=== PATIENT | female | born 2000 | race Caucasian/White ===

== ENCOUNTER 2023-03-24 14:16 | Emergency (ER) | payer OTHER, SELFPAY ==
[2023-03-24 14:21] VITALS: BP 127/82
[2023-03-24 14:47] LABS: % Basophils 0.6 % (0-2); % Eosinophils 0.5 % (0-6); % Immature Granulocytes 0.3 % (0-0.5); % Lymphocytes 12.8 % (20.5-51.1); % Monocytes 8.7 % (1.7-9.3); % Neutrophils 77.1 % (42.2-75.2); Absolute Basophils 0.1 10^3/uL (0-0.2); Absolute Eosinophils 0.1 10^3/uL (0-0.7); Absolute Lymphocytes 1.5 10^3/uL (1.2-3.4); Absolute Neutrophils 9.2 10^3/uL (1.4-6.5); Hematocrit 40.2 % (37.0-47.0); Hemoglobin 13.7 g/dL (12.0-16.0); Mean Corp Hgb Conc. 34.1 g/dL (33.0-37.0); Mean Corpuscular Hgb 31.4 pg (27.0-31.0); Mean Platelet Volume 9.2 fL (7.4-10.4); Nucleated Red Blood Cells % 0 %; Platelet Count 298 10^3/uL (130-400); Red Blood Cell Count 4.37 10^6/uL (4.20-5.40); Red Cell Dist. Width 12.3 % (11.5-14.5)
[2023-03-24 14:51] LABS: HCG, Serum Qualitative Screen Negative
[2023-03-24 14:53] LABS: Urine Albumin Negative (Neg - Trace); Urine Bilirubin Negative (Negative); Urine Character Clear (Clear); Urine Color Yellow; Urine Glucose Negative (Negative); Urine Ketone Negative (Negative); Urine Leukocyte Negative (Negative); Urine Nitrite Negative (Negative); Urine Occult Blood Negative (Negative); Urine Specific Gravity 1.005 (<1.030); Urine Urobilinogen Negative (Neg - 1+)
[2023-03-24 14:56] LABS: ALT (SGPT) 25 U/L (0-35); AST (SGOT) 29 U/L (14-36); Albumin 4.8 g/dl (3.5-5.0); Alkaline Phosphatase 62 U/L (38-126); Blood Urea Nitrogen 8 mg/dl (7-17); Calcium 9.5 mg/dl (8.4-10.2); Carbon Dioxide 25 mmol/L (22-30); Chloride 105 mmol/L (98-107); Glucose 100 mg/dl (70-99); Potassium 3.8 mmol/L (3.5-5.1); Sodium 139 mmol/L (135-145); Total Bilirubin 0.8 mg/dl (0.2-1.3); Total Protein 7.6 g/dl (6.3-8.2); eGFR > 60.00
--- NOTE | 2023-03-24 15:57 | ED.GENMED ---
History of Present Illness
General
Chief Complaint: Abdominal Symptoms
Source: patient
Exam Limitations: none
Time Seen by Provider: 03/24/23 15:19
Nursing documentation reviewed up to this point in time: agreed with
Travel History
Have you had any contact with someone who has COVID-19?: No
Do you have any symptoms of coronavirus? Fever > 100 degrees, chills, cough, shortness of breath, sore throat, loss of taste or smell, muscle aches, or headache?: No
History of Present Illness
History of Present Illness:
The patient is a 22-year-old female who reports generalized upper abdominal discomfort and cramping that started yesterday. Patient reports that since last night, the pain has moved into her right lower abdomen and pelvic area. Patient reports the
pain has not gone away but she gets waves of intense pain in that area. Patient denies nausea and vomiting. She has had mild nonbloody diarrhea. She reports that any movement makes the pain in her right lower abdomen and pelvic area worse. She
denies vaginal bleeding and vaginal discharge. At times the pain is into her right lower back. She denies urinary symptoms such as burning and frequency.
Past History
Past History
ED Past Medical History: Psychiatric (Depression) and Other (Chronic back pain)
ED Past Surgical History: Other
Social History
Tobacco: Non-smoker
Alcohol: None
Drug: None
Personal: Single
Living: with family
Employment: Other
Family History
Family History: Other
Review of Systems
Review of Systems
Allergies reviewed?: Yes
All Other Systems: ROS reviewed and negative except as documented in HPI and ROS
Constitutional: Reports no symptoms
EENT: Reports no symptoms
Respiratory: Reports no symptoms
Cardiac: Reports no symptoms
ABD/GI: Reports abdominal pain and diarrhea
: Reports no symptoms
Musculoskeletal: Reports no symptoms
Skin: Reports no symptoms
Neurological: Reports no symptoms
Endocrine: Reports no symptoms
Hematologic/Lymphatic: Reports no symptoms
Psychiatric: Reports no symptoms
Phy Exam
Physical Exam
Physical Exam:
Physical Exam
General: no apparent distress, not acutely ill
Neck: supple.
Heart: s1/s2 regular rate and rhythm, no murmur. equal radial pulses.
Lungs: no acute respiratory distress. clear bilaterally
Abdomen: Soft. No pulsatile mass. Right lower quadrant and right pelvic tenderness. Mild guarding. No rebound tenderness.
Neuro: alert and oriented. no focal neurological deficits
Skin: no rash
Psychiatric: well kept. interactive and cooperative
Extremities: no edema. no calf tenderness. negative homans. good distal pulses
Course
Orders/Labs/Results
Orders:
Orders
03/24/23 14:26
Test Result ONCE
03/24/23 14:33
Complete Blood Count/With Diff Urgent
Comprehensive Metabolic Panel Urgent
HCG, Serum Qualitative Screen Urgent
Urinalysis Reflex To Culture Urgent
Date Specimen was Collected: 03/24/23
Time Specimen was Collected: 14:25
03/24/23 16:24
Ibuprofen [Motrin] 600 mg PO NOW STA
03/24/23 16:25
US Abdomen - Appendix Only Urgent
Comment:
Reason For Exam: RLQ pain, R pelvic pain
03/24/23 16:26
US Pelvis Transvaginal Only Urgent
Comment:
Reason For Exam: RLQ pain, eval for torsion
03/24/23 18:40
CT Abd/pel W Iv And Oral Contr Urgent
Comment:
Reason For Exam: RLQ pain
Iohexol [Omnipaque] See Protocol PO NOW STA
Morphine Sulfate 2 mg IV NOW STA
03/24/23 20:21
Morphine Sulfate 4 mg IV NOW STA
03/24/23 20:22
Morphine Sulfate 4 mg .ROUTE .STK-MED ONE
Abnormal Lab Results
03/24/23
14:33
WBC 12.0 H 10^3/uL
(4.8-10.8)
MCH 31.4 H pg
(27.0-31.0)
Absolute Neuts (auto) 9.2 H 10^3/uL
(1.4-6.5)
Absolute Monos (auto) 1.0 H 10^3/uL
(0.1-0.6)
Neutrophils % 77.1 H %
(42.2-75.2)
Lymphocytes % 12.8 L %
(20.5-51.1)
Glucose 100 H mg/dl
(70-99)
03/24/23 14:33
03/24/23 14:33
Vital Signs
Initial and Last Documented VS:
Initial Vital Signs
Temp Pulse Resp BP Pulse Ox
98.0 F 90 16 127/82 98
03/24/23 14:21 03/24/23 14:21 03/24/23 14:21 03/24/23 14:21 03/24/23 14:21
Last Documented Vital Signs
Temp Pulse Resp BP Pulse Ox
98.0 F 84 17 116/72 96
03/24/23 14:21 03/24/23 18:10 03/24/23 19:55 03/24/23 19:55 03/24/23 19:55
MDM/Problems Addressed
Differential Diagnosis Includes:
Acute appendicitis, right ovarian torsion, ruptured ovarian cyst
MDM/Problems Addressed:
Patient presents with acute right lower abdominal pain
*Radiology
Radiology exam reviewed: preliminary read by ED provider (I viewed patient's appendix ultrasound. Appendix wall looks thickened) and radiology read reviewed
*Pulse Oximetry
Patient hypoxic: no
*EKG
Interpreted by ED Provider?: NA
*Sales Account Associate Interpretation
Rate: Sales Account Associate- N/A
*Critical Care Note
Total Time (30-74mins, 75-104mins- exclusive of procedures): Not Applicable
Data Reviewed
Review of Other/Old Records Reveals: Radiology Studies (Ultrasound reviewed from 05/2022 which showed a normal pelvic ultrasound. Study was done for severe menstrual pain)
Source: patient and family
Patient Management
Discussion with other providers: Other (Ultrasound and patient's presentation discussed with Dr. Minor who recommended that we follow through with a CAT scan for more definitive image. Patient understands this. She is still uncomfortable and will
be given morphine at 6:45 PM)
Escalation/DeEscalation of care consider admission/obs:
CAT scan report reviewed with radiology. Radiologist sees normal appendix. I reevaluated the patient, who states that her pain is better. Patient does have free fluid in her pelvis and she could have ruptured an ovarian cyst. Patient told to
return with any fever or recurrence of significant pain. Patient encouraged to use warm compresses and NSAIDs
ED Attending Note
-
Portions of this chart may have been created with voice recognition software.� Occasional wrong word or��sound alike� substitutions may have occurred due to the inherent limitations of voice recognition software.
Discharge Plan
Departure
Patient Disposition: Home (Routine Discharge)
Date of Disposition: 03/24/23
Time of Disposition: 22:41
Patient with high blood pressure during this ER visit?: No
Condition: Good
Covid-19: Not Applicable
Discharge Problem:
Rupture of cyst of right ovary
Instructions: Ovarian Cyst ED
Prescriptions:
No Action
albuterol 90 mcg/actuation Aerosol
1 mcg INHALATION PRN PRN (Reason: sob)
magnesium Tablet
2 tab PO DAILY
[place] 3 350-400 mg Capsule
2 cap PO DAILY
Collagen 1500 Plus C 500 mg-800 mcg- 50 mg Capsule
4 cap PO DAILY
vitamin D3-vitamin K2
1 drp PO DAILY
Referrals:
Perry Bruner MD [Family Provider] -
Activity Restrictions/Additional Instructions:
Return with any fever or vomiting. Take 600 mg of Advil every 6-8 hours with food for pain.
Interventions
Interventions:
*Risk Screen - Suicide Last Done: 03/24/23 18:30
*General Assessment Last Done: 03/24/23 18:30
*Neglect/Abuse Screening Last Done: 03/24/23 18:30
ED- Fall Risk Assessment Last Done: 03/24/23 18:09
*ED COVID-19 Vaccine History Last Done: 03/24/23 14:21
PF-Orpqwi-Bipmhbuger Assessment Last Done: 03/24/23 19:05
[2023-03-24] MEDS: MOTRIN 600 MG PO (16:28)
[2023-03-24 18:10] VITALS: BP 117/64
[2023-03-24 18:51] VITALS: BMI 21.9
[2023-03-24] MEDS: OMNIPAQUE 50 ML PO (18:51)
[2023-03-24] MEDS: MORPHINE SULFATE 2 MG IV (18:52)
[2023-03-24 19:55] VITALS: BP 116/72
[2023-03-24] MEDS: MORPHINE SULFATE 4 MG IV (20:24)
== END 2023-03-24 23:02 | disposition home or self-care (01) ==
LOC: EMR 14:16
PROVIDERS: Emergency Medicine; EMERGENCY PHYSICIAN Emergency Medicine; FAMILY PHYSICIAN Family Medicine
DX: N83.201 Unspecified ovarian cyst, right side (principal); R19.7 Diarrhea, unspecified; M54.50 Low back pain, unspecified; F32.A Depression, unspecified; G89.29 Other chronic pain; Z91.040 Latex allergy status; Z91.048 Other nonmedicinal substance allergy status
CPT/HCPCS: 99285; 96374; 96376; 74177; 76705; 76830; 80053; 81003; 84703; 85025; Q9967

== ENCOUNTER → 2023-05-23 12:29 | Outpatient (REF) | payer OTHER, SELFPAY | LOC: RAD 12:29 | PROVIDERS: ATTENDING PHYSICIAN Physical Medicine & Rehabilitation; FAMILY PHYSICIAN Family Medicine | DX: S39.012A Strain of muscle, fascia and tendon of lower back, initial encounter (principal) | CPT/HCPCS: 72132 ==

== ENCOUNTER 2023-07-15 11:15 | Emergency (ER) | payer OTHER, SELFPAY ==
[2023-07-15 11:17] VITALS: BP 115/76
--- NOTE | 2023-07-15 12:32 | ED.MUSCINJ ---
HPI-Injury
General
Chief Complaint: Musculo-Skeletal Complaint
Source: patient and family
Exam Limitations: none
Time Seen by Provider: 07/15/23 12:01
Nursing documentation reviewed up to this point in time: agreed with
Travel History
Have you had any contact with someone who has COVID-19?: No
Do you have any symptoms of coronavirus? Fever > 100 degrees, chills, cough, shortness of breath, sore throat, loss of taste or smell, muscle aches, or headache?: No
History of Present Illness-Injury
Is pt an associate of [facility]?: No
Initial Injury comments:
Patient is a 22-year-old female with past medical history of hypermobility syndrome, chronic back pain, exercise-induced asthma, who presents to the emergency department accompanied by her mother for evaluation of bilateral knee pain. Patient
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 Patient reports that the knee pain started a few weeks ago but was mild. She reports that it became acutely worse after she was 'W' sitting
outside with some family members 1.5 weeks ago. Patient reports that the right knee is slightly worse than the left but both are pretty painful. Patient reports that the knees were swollen, red, hot at one point although the redness and heat has
resolved. Patient reports that she is able to ambulate but with pain and difficulty. Patient reports she has been taking ibuprofen and Tylenol as needed for pain. She reports that it does seem to help sometimes. Patient denies taking any
medication for pain since yesterday morning. Patient denies any calf swelling. Patient denies any numbness, weakness, tingling of the feet or toes. Patient denies any recent fevers or chills. Patient denies any history of problems with her knees
in the past. Patient states that she has an appointment with orthopedics on July 18. She reports that they recommended she have x-rays prior to the appointment. She contacted her primary care provider for prescriptions for the x-rays and they
referred her to the emergency department.
Past History
Past History
ED Past Medical History: Psychiatric (Depression) and Other (Chronic back pain)
ED Past Surgical History: Other
Social History
Tobacco: Non-smoker
Alcohol: None
Drug: None
Personal: Single
Living: with family
Employment: Other
Family History
Family History: Other
Review of Systems
Review of Systems
Allergies reviewed?: Yes
All Other Systems: ROS reviewed and negative except as documented in HPI and ROS
Constitutional: Reports no symptoms
EENT: Reports no symptoms
Respiratory: Reports no symptoms
Cardiac: Reports no symptoms
ABD/GI: Reports no symptoms
: Reports no symptoms
Musculoskeletal: Reports other (bilateral knee pain)
Skin: Reports no symptoms
Neurological: Reports no symptoms
Endocrine: Reports no symptoms
Hematologic/Lymphatic: Reports no symptoms
Psychiatric: Reports no symptoms
Phy Exam
General Physical Exam
General Presentation: well appearing and no apparent distress
General Skin: warm and dry
General Habitus: normal
General Mental: alert
General Hydration: appears well hydrated
ENT Exam
ENT Exam: EOMI, pharynx normal, neck supple and normocephalic
Eye Exam
Eye Exam: PERRL, cornea clear and conjunctiva normal
Cardiovascular Exam
Cardiovascular Exam: normal peripheral pulses
Pulmonary Exam
Pulmonary Exam: no respiratory distress
Neurological Exam
Neurological Exam: alert, oriented x3, no motor deficits and speech normal
Musculoskeletal Exam
Musculoskeletal Exam: no edema and other (no erythema, no warmth of the b/l knees, pt has no significant ttp over the b/l knees, pt is able to flex the knees to 90 degrees, able to fully extend, pt has 2+ DP pulses b/l, sensation is intact to light
touch distally)
Skin Exam
Skin Exam: normal color, warm/dry, no rash and no petechia
Psychiatric Exam
Psychiatric Exam: normal mood/affect
Injury Course
Orders/Labs/Results
Orders:
Orders
07/15/23 11:29
Knee, Left 4 or More Views [CR Knee - Left 4 Or More View*] Urgent
Comment:
Reason For Exam: pain
Knee, Right 4 or More Views [CR Knee- Right 4 Or More View*] Urgent
Comment:
Reason For Exam: pain
07/15/23 12:32
Jagjit Wrap Left-Treatment ONCE
Jagjit Wrap Right-Treatment ONCE
Crutches-Treatment ONCE
Ibuprofen [Motrin] 600 mg PO NOW STA
*Critical Care Note
Total Time (30-74mins, 75-104mins- exclusive of procedures): Not Applicable
Update Note
Update Note:
22-year-old female with history of hypermobility syndrome, Raynaud's, presents with bilateral knee pain. Patient has been having pain for a while which she attributed to frequent bending and kneeling at work but it has become worse. Patient denies
systemic symptoms just fevers or chills. On arrival, patient's vital signs are stable, she is afebrile without taking antipyretics today. On exam, patient is well-appearing, she has no acute distress, she is neurovascularly intact. Radiographs
demonstrate no acute fracture or dislocation. Patient will be placed in an Jagjit wrap and provided with crutches. Patient is safe for discharge to home with instructions on continued supportive care and outpatient orthopedic follow-up which she
already has scheduled. Mother is also trying to schedule rheumatology follow-up given the bilateral nature of the patient's symptoms. Patient and her mother were educated on return precautions, they expressed understanding of the plan and agreed.
ED Attending Note
-
Portions of this chart may have been created with voice recognition software.� Occasional wrong word or��sound alike� substitutions may have occurred due to the inherent limitations of voice recognition software.
Discharge Plan
Departure
Patient Disposition: Home (Routine Discharge)
Date of Disposition: 07/15/23
Time of Disposition: 12:36
Patient with high blood pressure during this ER visit?: No
Condition: Good
Covid-19: Not Applicable
Discharge Problem:
Acute bilateral knee pain
Instructions: Knee Pain (DC)
Prescriptions:
No Action
albuterol 90 mcg/actuation Aerosol
1 mcg INHALATION PRN PRN (Reason: sob)
magnesium Tablet
2 tab PO DAILY
[place] 3 350-400 mg Capsule
2 cap PO DAILY
Collagen 1500 Plus C 500 mg-800 mcg- 50 mg Capsule
4 cap PO DAILY
vitamin D3-vitamin K2
1 drp PO DAILY
Referrals:
Follow up, with Orthopedics [Other] - Keep scheduled appt
Perry Bruner MD [Family Provider] -
Stand Alone Forms: Return to Work
Activity Restrictions/Additional Instructions:
You were seen in the emergency department for evaluation of pain in both of your knees. You had x-rays which show no broken or dislocated bones. You were provided with Jagjit wraps, please use during these during the day but remove at night. Please
try to rest and elevate your knees when possible, ideally above the level of your heart. Please take ibuprofen 600 mg every 6 hours or naproxen 500 mg every 12 hours for pain and inflammation. You may add on Tylenol for additional pain relief.
Please follow-up with orthopedics as scheduled later this week. Please return to the emergency department if you develop severe pain, swelling, redness, fever greater than 100.4 �F, or for any other worsening or concerning symptoms.
Interventions
Interventions:
*Risk Screen - Suicide Last Done: 07/15/23 11:26
*General Assessment Last Done: 07/15/23 11:26
*Neglect/Abuse Screening Last Done: 07/15/23 11:26
ED- Fall Risk Assessment Last Done: 07/15/23 12:48
*ED COVID-19 Vaccine History Last Done: 07/15/23 12:48
*Nursing Disposition Last Done: 07/15/23 12:48
ED-Musculoskeletal Assessment Last Done: 07/15/23 12:47
Discharge Date and Time
Discharge Date/Time: 07/15/23 12:49
Print Language: ESTONIAN
[2023-07-15] MEDS: MOTRIN 600 MG PO (12:37)
[2023-07-15 12:48] VITALS: BP 124/75
== END 2023-07-15 12:49 | disposition home or self-care (01) ==
LOC: EMR 11:15
PROVIDERS: EMERGENCY PHYSICIAN Emergency Medicine; FAMILY PHYSICIAN Family Medicine
DX: M25.562 Pain in left knee (principal); M25.561 Pain in right knee; I73.00 Raynaud's syndrome without gangrene; M54.9 Dorsalgia, unspecified; F32.A Depression, unspecified; M35.7 Hypermobility syndrome; J45.998 Other asthma; G89.29 Other chronic pain; Z91.040 Latex allergy status; Z91.048 Other nonmedicinal substance allergy status
CPT/HCPCS: 99283; 73564

== ENCOUNTER → 2023-08-18 09:33 | Outpatient (REF) | payer OTHER, SELFPAY | LOC: RCS 09:33 | PROVIDERS: ATTENDING PHYSICIAN Nurse Practitioner Family; FAMILY PHYSICIAN Nurse Practitioner Family | DX: R10.9 Unspecified abdominal pain (principal) | CPT/HCPCS: 93306 ==

== ENCOUNTER → 2024-03-22 10:45 | Outpatient (REF) | payer OTHER, SELFPAY | LOC: RAD 10:45 | PROVIDERS: ATTENDING PHYSICIAN Obstetrics & Gynecology; FAMILY PHYSICIAN Family Medicine | DX: N94.6 Dysmenorrhea, unspecified (principal) | CPT/HCPCS: 76830; 76856 ==

== ENCOUNTER → 2024-05-23 14:12 | Outpatient (REF) | payer OTHER, SELFPAY | LOC: WDC 14:12 | PROVIDERS: ATTENDING PHYSICIAN Nurse Practitioner Family | DX: N64.4 Mastodynia (principal) | CPT/HCPCS: 76642 ==